=== PATIENT | female | born 1955 | race Caucasian/White ===

== ENCOUNTER → 2018-02-06 | Outpatient (CLI) | payer OTHER ==
[~2018-02-06] MED LIST: ATROPINE SYRINGE 0.1 MG/ML, 10ML ONE; SECRETIN 16 MCG ONE
== END | disposition home or self-care (01) ==
LOC: RAD 13:23
PROVIDERS: ATTEND Internal Medicine Gastroenterology
DX: K57.30 Diverticulosis of large intestine without perforation or abscess without bleeding (principal); K64.8 Other hemorrhoids; K86.2 Cyst of pancreas; Z86.010 Personal history of colon polyps
CPT/HCPCS: 74183; J2850; J0461